=== PATIENT | female | born 1960 | race African-American/Black ===

== ENCOUNTER 2018-03-05 19:02 | Emergency (ER) | payer OTHER ==
--- NOTE | 2018-03-05 20:37 | ER Document Report ---
ED Medical Screen (RME) - General Chief Complaint: Leg Swelling Stated Complaint: LEG SWELLING Time Seen by Provider: 03/05/18 20:26 Mode of Arrival: Ambulatory Information source: Patient Notes: Patient with LLE swelling. Denies any pain. Patient is a non-smoker, does not take any hormone supplements. Does not take any blood thinners. Currently being treated for endometrial cancer. I have greeted and performed a rapid initial assessment of this patient. A comprehensive ED assessment and evaluation of the patient, analysis of test results and completion of the medical decision making process will be conducted by additional ED providers. TRAVEL OUTSIDE OF THE [place] IN LAST 30 DAYS: No - Related Data Allergies/Adverse Reactions: No Known Allergies Allergy (Unverified 03/05/18 19:05) Physical Exam - Vital signs Vitals: Temp Pulse Resp BP Pulse Ox 98.9 F 64 16 111/54 L 99 03/05/18 19:12 03/05/18 19:12 03/05/18 19:12 03/05/18 19:12 03/05/18 19:12 - Extremities General lower extremity: Nontender, Normal strength, Normal temperature, Other - Swelling to left lower extremity concerning for DVT Course - Vital Signs Vital signs: Temp Pulse Resp BP Pulse Ox 98.2 F 102 H 18 117/62 95 03/05/18 23:00 03/05/18 23:00 03/05/18 23:00 03/05/18 23:00 03/05/18 23:00 Doctor's Discharge - Discharge Clinical Impression: Left leg swelling Condition: Stable Disposition: HOME, SELF-CARE Additional Instructions: Leg Pain We did not find an obvious cause for your leg swelling. The venous doppler was negative for any deep vein thrombosis. There is a small superficial clot noted. This is not occluding anything at this time. You may need a repeat venous doppler in 2 weeks if your pain continues. Please take an anti- inflammatory such as ibuprofen as needed for pain. Follow up with your primary care physician. Please return to the emergency department if you develop worsening swelling, pain, shortness of breath or chest pain. Referrals: LOCALMD,NO [NO LOCAL MD] - Follow up as needed
--- NOTE | 2018-03-05 22:27 | RADIOLOGY REPORT (SQ) ---
EXAM DESCRIPTION: VENOUS UNILATERAL LOWER COMPLETED DATE/TIME: 03/05/2018 10:18 pm REASON FOR STUDY: left lower extremity swelling COMPARISON: None. TECHNIQUE: Dynamic and static mcghee scale and color images acquired of the left leg venous system. Se lected spectral images acquired with additional compression and augmentation maneuvers. The contralat eral common femoral vein and saphenofemoral junction were also imaged. Images stored on PACS. LIMITATIONS: None. FINDINGS: COMMON FEMORAL: Normal phasicity, compression and augmentation. No visualized echogenic ma terial on mcghee scale. No defects on color images. FEMORAL: Normal compression and augmentation. No visualized echogenic material on mcghee scale. No defe cts on color images. POPLITEAL: Normal compression, augmentation. No visualized echogenic material on mcghee scale. No defec ts on color images. CALF VESSELS: Normal compression, augmentation. No visualized echogenic material on mcghee scale. No de fects on color images. GSV and SSV: There is a small amount of thrombus that is nonocclusive in the greater saphenous vein. This appears to be acute. ANY DEEP VENOUS INSUFFICIENCY: Not evaluated. ANY EVIDENCE OF POPLITEAL CYST: No. OTHER: No other significant finding. CONTRALATERAL COMMON FEMORAL VEIN AND SAPHENOFEMORAL JUNCTION: Normal phasicity, compression and augmentation. No visualized echogenic material on mcghee scale. No de fects on color images. IMPRESSION: Limited greater saphenous thrombosis as described. Nonocclusive. This is acute. TECHNICAL DOCUMENTATION: JOB ID: [id number] [employer]- All Rights Reserved Reading location - IP/workstation name: [email or web address]
[2018-03-05 23:01] VITALS: BP 117/62
--- NOTE | 2018-03-06 06:47 | ER Document Report ---
ED Extremity Problem, Lower - General Chief Complaint: Leg Swelling Stated Complaint: LEG SWELLING Time Seen by Provider: 03/05/18 20:26 Mode of Arrival: Ambulatory Notes: Patient with LLE swelling. Denies any pain. Patient is a non-smoker, does not take any hormone supplements. Does not take any blood thinners. Currently being treated for endometrial cancer. TRAVEL OUTSIDE OF THE [place] IN LAST 30 DAYS: No - Related Data Allergies/Adverse Reactions: No Known Allergies Allergy (Unverified 03/05/18 19:05) Past Medical History - General Information source: Patient - Social History Smoking Status: Never Smoker Chew tobacco use (# tins/day): No Frequency of alcohol use: None Drug Abuse: None Family History: Reviewed & Not Pertinent Patient has suicidal ideation: No Patient has homicidal ideation: No - Past Medical History Cardiac Medical History: Reports: Hx Hypercholesterolemia, Hx Hypertension Endocrine Medical History: Reports: Hx Diabetes Mellitus Type 2 Renal/ Medical History: Reports: Other - Uterine cancer. Denies: Hx Peritoneal Dialysis Past Surgical History: Reports: Hx Section - 2, Hx Hysterectomy, Hx Orthopedic Surgery - bilateral knees - Immunizations Immunizations up to date: Yes Physical Exam - Vital signs Vitals: Temp Pulse Resp BP Pulse Ox 98.9 F 64 16 111/54 L 99 03/05/18 19:12 03/05/18 19:12 03/05/18 19:12 03/05/18 19:12 03/05/18 19:12 - Notes Notes: PHYSICAL EXAMINATION: GENERAL: Well-appearing, well-nourished and in no acute distress. HEAD: Atraumatic, normocephalic. EYES: Pupils equal round and reactive to light, extraocular movements intact, conjunctiva are normal. ENT: Nares patent, oropharynx clear without exudates. Moist mucous membranes. NECK: Normal range of motion, supple without lymphadenopathy LUNGS: Breath sounds clear to auscultation bilaterally and equal. No wheezes rales or rhonchi. HEART: Regular rate and rhythm without murmurs ABDOMEN: Soft, nontender, nondistended abdomen. No guarding, no rebound. No masses appreciated. Musculoskeletal: Normal range of motion, Moderate non-pitting edema to left lower extremity No cyanosis. NEUROLOGICAL: Cranial nerves grossly intact. Normal speech. Normal sensory, motor exams PSYCH: Normal mood, normal affect. SKIN: Warm, Dry, normal turgor, no rashes or lesions noted Course - Re-evaluation Re-evalutation: Venous doppler study ordered to rule out DVT to LLE. No DVT noted on venous doppler. There is a non-occlusive greater saphenous thrombosis. Discussed findings with Dr. Madison as well as doppler tech. No anticoagulant therapy is indicated per Dr. Madison. Patient is agreeable and will follow up with her primary care provider. Patient understands that if the swelling continues, she may need a repeat venous doppler study in 1-2 weeks. - Vital Signs Vital signs: Temp Pulse Resp BP Pulse Ox 98.2 F 102 H 18 117/62 95 03/05/18 23:00 03/05/18 23:00 03/05/18 23:00 03/05/18 23:00 03/05/18 23:00 Discharge - Discharge Clinical Impression: Left leg swelling Condition: Stable Disposition: HOME, SELF-CARE Additional Instructions: Leg Pain We did not find an obvious cause for your leg swelling. The venous doppler was negative for any deep vein thrombosis. There is a small superficial clot noted. This is not occluding anything at this time. You may need a repeat venous doppler in 2 weeks if your pain continues. Please take an anti- inflammatory such as ibuprofen as needed for pain. Follow up with your primary care physician. Please return to the emergency department if you develop worsening swelling, pain, shortness of breath or chest pain. Referrals: LOCAL,NO [NO LOCAL MD] - Follow up as needed
== END 2018-03-05 23:01 | disposition home or self-care (01) ==
LOC: ER 19:02
DX: I82.812 Embolism and thrombosis of superficial veins of left lower extremity (principal); C54.1 Malignant neoplasm of endometrium; I10 Essential (primary) hypertension; E11.9 Type 2 diabetes mellitus without complications; M79.89 Other specified soft tissue disorders
CPT/HCPCS: 93971; 99283